=== PATIENT | female | born 1950 | race African-American/Black ===

== ENCOUNTER 2019-04-30 22:08 | Emergency (ER) | payer MEDICARE, MEDICAID ==
[~2019-04-30] VITALS: Ht 157.5 cm; Wt 76.8 kg
[2019-05-01] MEDS ORDERED: KETOROLAC TROMETHAMINE 30 MG/ML VIAL IM ONE (00:45)
[2019-05-01 01:46] VITALS: BP 141/83
== END 2019-05-01 01:53 | disposition home or self-care (01) ==
LOC: EMS 05-01 00:03
DX: G89.29 Other chronic pain (principal); M25.511 Pain in right shoulder; M25.512 Pain in left shoulder; F17.210 Nicotine dependence, cigarettes, uncomplicated; Z98.890 Other specified postprocedural states
CPT/HCPCS: 96372; 99283; J1885